=== PATIENT | female | born 1980 | race Caucasian/White ===

== ENCOUNTER 2018-08-17 04:34 | Emergency (ER) | payer OTHER ==
[2018-08-17] MEDS ORDERED: Ketorolac INJ* 30 MG/ML 1 ML VIAL IM ONE (04:51)
[2018-08-17] MEDS ORDERED: traMADol TAB* 50 MG PO ONE (04:52)
--- NOTE | 2018-08-17 04:54 | ED ---
HPI Chest Pain - HPI Summary HPI Summary: This patient is a 37 year old F presenting to [facility] with a chief complaint of chest heaviness for the past week that worsened this morning with mid to left chest pain. Pain rated 7/10 in severity. She describes he pain as something on top of her. Reports palpitation and mild SOB. Pain is worsened with movement. Denies nausea and diaphoresis. Denies PMHx. Denies FHx of cardiac disease. Patient is a non-smoker. - History of Current Complaint Chief Complaint: EDChestPainROMI Time Seen by Provider: 08/17/18 04:45 Hx Obtained From: Patient Onset/Duration: Started Hours Ago Timing: Constant Pain Intensity: 7 Pain Scale Used: 0-10 Numeric Chest Pain Location: Mid Sternal, Left Anterior Chest Pain Radiates: No Character: Heaviness Aggravating Factor(s): Movement Alleviating Factor(s): Nothing Associated Signs and Symptoms: Positive: Shortness of Breath, Palpitations - Allergy/Home Medications Allergies/Adverse Reactions: Allergies Allergy/AdvReac Type Severity Reaction Status Date / Time codeine Allergy GI Upset Verified 08/17/18 04:54 erythromycin base Allergy Hives/Diff. Verified 08/17/18 04:54 Breathing/I tching Penicillins Allergy Hives/Diff. Verified 08/17/18 04:54 Breathing/I tching PMH/Surg Hx/FS Hx/Imm Hx Endocrine/Hematology History: Denies: Hx Diabetes Cardiovascular History: Denies: Hx Coronary Artery Disease GI History: Reports: Other GI Disorders - microscopic colitis - Surgical History Surgery Procedure, Year, and Place: PER PATIENT, NO PRIOR SURGERIES. Infectious Disease History: No Infectious Disease History: Denies: Traveled Outside the [place] in Last 30 Days - Family History Known Family History: Positive: Other - mother -- celiac. Sister -- IBS/UC. Negative: Cardiac Disease - Social History Alcohol Use: Occasionally Hx Substance Use: No Substance Use Type: Reports: None Hx Tobacco Use: No Smoking Status (MU): Never Smoked Tobacco Review of Systems Negative: Skin Diaphoresis Positive: Palpitations, Chest Pain Positive: Shortness Of Breath Negative: Nausea All Other Systems Reviewed And Are Negative: Yes Physical Exam - Summary Physical Exam Summary: VITAL SIGNS: Reviewed. GENERAL: Patient is a well-developed and nourished female who is lying comfortable in the stretcher. Patient is not in any acute respiratory distress. HEAD AND FACE: No signs of trauma. No ecchymosis, hematomas or skull depressions. No sinus tenderness. EYES: PERRLA, EOMI x 2, No injected conjunctiva, no nystagmus. EARS: Hearing grossly intact. Ear canals and tympanic membranes are within normal limits. MOUTH: Oropharynx within normal limits. NECK: Supple, trachea is midline, no adenopathy, no JVD, no carotid bruit, no c- spine tenderness, neck with full ROM CHEST: Symmetric. Tenderness over the left chest wall LUNGS: Clear to auscultation bilaterally. No wheezing or crackles. CVS: Regular rate and rhythm, S1 and S2 present, no murmurs or gallops appreciated. ABDOMEN: Soft, non-tender. No signs of distention. No rebound no guarding, and no masses palpated. Bowel sounds are normal. EXTREMITIES: FROM in all major joints, no edema, no cyanosis or clubbing. NEURO: Alert and oriented x 3. No acute neurological deficits. Speech is normal and follows commands. SKIN: Dry and warm Triage Information Reviewed: Yes Vital Signs On Initial Exam: Initial Vitals Temp Pulse Resp BP Pulse Ox 98.2 F 70 18 130/64 98 08/17/18 04:35 08/17/18 04:35 08/17/18 04:35 08/17/18 04:35 08/17/18 04:35 Vital Signs Reviewed: Yes Diagnostics - Vital Signs Vital Signs Temp Pulse Resp BP Pulse Ox 08/17/18 04:35 98.2 F 70 18 130/64 98 - Laboratory Result Diagrams: 08/17/18 05:17 08/17/18 05:17 Lab Statement: Any lab studies that have been ordered have been reviewed, and results considered in the medical decision making process. - Radiology CXR Radiology Interpretation Completed By: ED Physician Summary of Radiographic Findings: No acute process. Pending offical report. - EKG 0442 Cardiac Rate: NL - 65 BPM EKG Rhythm: Sinus Rhythm Summary of EKG Findings: Normal axis. Normal interval. No ischemic changes. Chest Pain Course/Dx - Course Course Of Treatment: 37 year old F presenting to [facility] with a chief complaint of chest heaviness for the past week that worsened this morning with mid to left chest pain. Tenderness to palpation over the left chest wall. EKG is NSR with 65 BPM and a normal axis, normal interval, and no ischemic changes. CXR reveals no acute process. Bloodwork reveals a negative troponin. Patient is given 30mg Toradol and 50mg Ultram. Patient will be discharged home with a prescription for Motrin and Ultram. Patient is instructed to follow up with her primary doctor. - Diagnoses Provider Diagnoses: Chest wall pain Discharge - Sign-Out/Discharge Documenting (check all that apply): Patient Departure - discharge Patient Received Moderate/Deep Sedation with Procedure: No - Discharge Plan Condition: Stable Disposition: HOME Prescriptions: Ibuprofen TAB* [Motrin TAB* 600 MG] 600 mg PO Q6H PRN #30 tab PRN Reason: Pain traMADol TAB* [Ultram*] 50 mg PO Q6HR PRN #14 tab MDD 4 PRN Reason: Pain Patient Education Materials: Chest Wall Pain (ED) Referrals: Torey Stanley MD [Primary Care Provider] - 2 Days Additional Instructions: RETURN TO THE EMERGENCY DEPARTMENT FOR CHANGING OR WORSENING SYMPTOMS. - Attestation Statements Document Initiated by Scribe: Yes Documenting Scribe: Ghislaine Alicia Provider For Whom Scribe is Documenting (Include Credential): Annie Saalzar MD Scribe Attestation: Ghislaine Burrows, scribed for Annie Salazar MD on 08/17/18 at 0631. Status of Scribe Document: Ready
[2018-08-17 05:28] LABS: ABS Basophils 0.1 10^3/ul (0-0.2); ABS Eosinophils 0.3 10^3/ul (0-0.6); ABS Lymphocytes 1.3 10^3/ul (1.0-4.8); ABS Monocytes 0.4 10^3/ul (0-0.8); ABS Neutrophils 2.8 10^3/ul (1.5-7.7); Eosinophil % 6.6 %; Hematocrit 37 % (35-47); Hemoglobin 12.8 g/dL (12.0-16.0); Lymphocyte % 26.8 %; Mean Corpuscular HGB Conc 35 g/dL (31-36); Mean Corpuscular Hemoglobin 32 pg (27-31); Mean Corpuscular Volume 93 fL (80-97); Mean Platelet Volume 7.3 fL (7.4-10.4); Nucleated Red Blood Cells % 0.1; Platelet Count 278 10^3/uL (150-450); Red Blood Count 3.97 10^6 /uL (3.70-4.87); Red Cell Distribution Width 13 % (10-15)
[2018-08-17 05:41] LABS: ALT 17 U/L (7-52); AST 18 U/L (13-39); Albumin 3.8 g/dL (3.2-5.2); Albumin/Globulin Ratio 1.5 (1-3); Alkaline Phosphatase 53 U/L (34-104); Anion Gap 6 mmol/L (2-11); BUN/Creatinine Ratio 28.6 (8-20); Blood Urea Nitrogen 18 mg/dL (6-24); CO2 Carbon Dioxide 24 mmol/L (22-32); Calcium 9.3 mg/dL (8.6-10.3); Chloride 108 mmol/L (101-111); Creatine Kinase 111 U/L (10-223); EGFR African American 128.7 (>60); EGFR Non-African American 106.3 (>60); Globulin 2.6 g/dL (2-4); Glucose 106 mg/dL (70-100); Magnesium 2.1 mg/dL (1.9-2.7); Potassium 3.6 mmol/L (3.5-5.0); Sodium 138 mmol/L (135-145); Total Protein 6.4 g/dL (6.4-8.9)
[2018-08-17 05:42] LABS: Activated Partial Thrombo Time 38.4 seconds (26.0-38.0); INR 1.11 (0.82-1.09)
[2018-08-17 05:49] LABS: HCG Pregnancy < 0.60 mIU/mL
[2018-08-17 06:18] VITALS: BP 112/59
== END 2018-08-17 06:17 | disposition home or self-care (01) ==
LOC: ED 04:34
DX: R07.89 Other chest pain (principal); R06.02 Shortness of breath; R00.2 Palpitations; Z88.1 Allergy status to other antibiotic agents; Z88.5 Allergy status to narcotic agent; Z88.0 Allergy status to penicillin
CPT/HCPCS: 36415; 71045; 80053; 82550; 83605; 83735; 84484; 84702; 85025; 85379; 85610; 85730; 93005; 96372; 99283; A9270-GY; J1885